=== PATIENT | female | born 1940 | race Caucasian/White ===

== ENCOUNTER 2017-08-15 10:54 | Emergency (ER) | payer OTHER ==
[~2017-08-15] VITALS: Ht 165.1 cm; Wt 63.5 kg
[~2017-08-15 10:54] MED LIST: BETOPTIC S10 ML OPH; CLARITIN10 M1 PO; DEPAKOTE500 M1 PO; DIAMOX SEQUELS500 MG PO; DOXYCYCLINE; LATANOPROST2.5 ML OPH; LOTEMAX5 ML OPH; MEDROL4 M2 PO; PRAVASTATIN SOD40 M2 PO; SIMBRINZA 1%-0.28 ML OPH; VENTOLIN HFA18 GM INH
--- NOTE | 2017-08-15 11:05 | ED DYSPNEA/ASTHMA COMPLAINT ---
History of Present Illness General Chief Complaint: Dyspnea (COPD, CHF, Other) Stated Complaint: SOB Source: patient Exam Limitations: no limitations Vital Signs & Intake/Output Vital Signs & Intake/Output Vital Signs Date Time Temp Pulse Resp B/P B/P Pulse O2 O2 Flow FiO2 Mean Ox Delivery Rate 08/15 1421 98.1 71 18 113/58 94 Room Air 08/15 1333 93 08/15 1237 97.5 74 18 124/56 92 Room Air 08/15 1156 92 08/15 1059 97.8 79 22 135/76 94 Room Air Allergies Coded Allergies: No Known Allergies (12/07/16) Reconcile Medications Albuterol Sulfate 2.5 MG/3 ML (0.083 %) VIAL.NEB 1 Vial INH/GAYLE Q4P PRN SHORTNESS OF BREATH (Reported) Betaxolol HCl (Betoptic S) 0.25 % DROPS.SUSP 1 DROP OPH BID GLAUCOMA ( Reported) BOTH EYES Brinzolamide/Brimonidine Tart (Simbrinza 1%-0.2% Eye Drops) 1 %-0.2 % DROPS.SUSP 1 DROP OPH TID GLAUCOMA (Reported) BOTH EYES Divalproex Sodium (Depakote) 500 MG TABLET.DR 2 TAB PO QHS MOOD DISORDER ( Reported) Lisinopril 20 MG TABLET 1 TAB PO DAILY HEART (Reported) Loteprednol Etabonate (Lotemax) 0.5 % DROPS.SUSP 1 GTT OPH DAILY GLAUCOMA ( Reported) BOTH EYES Pravastatin Sodium 40 MG TABLET 1 TAB PO DAILY CHOLESTEROL (Reported) Prednisone 10 MG TABLET 1 TAB PO DAILY asthma take 4 tabs days 1 and 2 3 tabs day 3 2 tabs day 4 1 tab day 5 Triage Note: PT C/O SOB SINCE SUNDAY. STATES WORSE WITH EXERTION. PT DENIES CP. STATES HX OF ASTHMA BUT NO RELIEF WITH INHALER. O2 SAT 94% IN TRIAGE Triage Nurses Notes Reviewed? yes Onset: Gradual Duration: day(s): Timing: recent history Severity: moderate Activities at Onset: activity HPI: 77yo female with hx of asthma, HTN presents to ED complaining of worsening dyspnea at x 4 days. Patient states that dyspnea has been increasing, worse with exertion. Patient has been using her asthma medications as well as DuoNeb without relief of her symptoms. Patient reports mild cough productive of small amount of mucus, no hemoptysis. Patient also reports wheezing. Patient denies chest pain, abdominal pain, fevers, chills, vomiting, leg swelling. (Deanna Pritchett) Past History Travel History Traveled to [place] past 21 day No Medical History Any Pertinent Medical History? see below for history Neurological: NONE EENT: NONE Cardiovascular: hypertension, hyperlipidemia Respiratory: asthma Gastrointestinal: NONE Hepatic: NONE Renal: NONE Musculoskeletal: NONE Psychiatric: NONE Endocrine: NONE Blood Disorders: NONE Cancer(s): NONE TIMBER HAND/Reproductive: NONE Tetanus Vaccine: 06/25/11 Surgical History Surgical History: non-contributory Psychosocial History Who do you live with Spouse What is your primary language Italian Tobacco Use: Quit >30 days ago ETOH Use: occasional use Illicit Drug Use: denies illicit drug use Family History Hx Contributory? No (Deanna Pritchett) Review of Systems Review of Systems Constitutional: Reports: no symptoms. EENTM: Reports: no symptoms. Respiratory: Reports: see HPI. Cardiovascular: Reports: no symptoms. GI: Reports: no symptoms. Genitourinary: Reports: no symptoms. Musculoskeletal: Reports: no symptoms. Skin: Reports: no symptoms. Neurological/Psychological: Reports: no symptoms. Hematologic/Endocrine: Reports: no symptoms. Immunologic/Allergic: Reports: no symptoms. All Other Systems: Reviewed and Negative (Deanna Pritchett) Physical Exam Physical Exam General Appearance: well developed/nourished, no apparent distress, alert, awake Head: atraumatic, normal appearance Eyes: Bilateral: normal appearance. Ears, Nose, Throat: hearing grossly normal Neck: normal inspection, supple, full range of motion Respiratory: no respiratory distress, diffuse inspiratory and expiratory wheezes bilaterally Cardiovascular: regular rate/rhythm Extremities: normal inspection, normal range of motion, no edema Neurologic/Psych: awake, alert, oriented x 3 Skin: intact, normal color, warm/dry Core Measures ACS in differential dx? Yes CVA/TIA Diagnosis No Sepsis Present: No Sepsis Focused Exam Completed? No (Deanna Pritchett) Progress Differential Diagnosis: asthma, AMI, bronchitis, CHF, COPD, pulmonary embolism, pneumonia, unstable angina Plan of Care: Orders Procedure Date/time Status TROPONIN LEVEL 08/15 1101 Complete COMPREHENSIVE METABOLIC PANEL 08/15 1101 Complete CBC WITHOUT DIFFERENTIAL 08/15 1101 Complete EKG 08/15 1055 Active Laboratory Tests 08/15/17 1120: Anion Gap 11, Estimated GFR > 60, BUN/Creatinine Ratio 21.4, Glucose 102 H, Calcium 9.7, Total Bilirubin 0.5, AST 26, ALT 26, Alkaline Phosphatase 57, Troponin I < 0.01, Total Protein 7.0, Albumin 4.3, Globulin 2.7, Albumin/ Globulin Ratio 1.6, CBC w Diff MAN DIFF ORDERED, RBC 4.15 L, MCV 99.2 H, MCH 33.2 H, MCHC 33.5, RDW 13.8, MPV 8.0, Gran % 35.0 L, Lymphocytes % 44.5, Monocytes % 8.2, Eosinophils % 11.9 H, Basophils % 0.4, Absolute Granulocytes 3.1, Segmented Neutrophils 30 L, Absolute Lymphocytes 4.0 H, Lymphocytes 48, Monocytes 10 H, Absolute Monocytes 0.7 H, Eosinophils 12 H, Absolute Eosinophils 1.1, Absolute Basophils 0, Platelet Estimate ADEQUATE, Anisocytosis 1+ Chest x-ray within normal limits. Patient reports some improvement following DuoNeb. Troponin enzyme is negative, EKG in sinus rhythm. No acute changes in EKG compared to previous study. Patient ambulatory here in the emergency department with O2 saturation between 89-92% on room air. Patient reports minimal dyspnea at this time, she feels comfortable walking here. Patient seen and evaluated by Dr. Weaver. We'll initiate IV Solu-Medrol and repeat DuoNeb. Following further treatment patient feels ready to go home. At rest O2 saturation around 94%, patient states her baseline is about 95%. The patient appears comfortable, she is knowledgeable about her condition. She reports that oral prednisone has worked for her during previous asthma exacerbations. Patient feels comfortable trying outpatient therapy, she was given strick return precautions. The patient is in no acute distress, nontoxic appearing. Patient agrees the plan of care. She will follow up with Dr. Kahn. Dr. Weaver agrees with plan of care. Diagnostic Imaging: Viewed by Me: Radiology Read. Discussed w/RAD: Radiology Read. CXR Impression: PATIENT: FERNANDO JOHN PRESENT AGE: 77 PATIENT ACCOUNT NO: [id number] : 42 LOCATION: [facility] ORDERING PHYSICIAN: Deanna JON SERVICE DATE: 08/15/17 EXAM TYPE: RAD - XRY-CHEST XRAY, TWO VIEWS EXAMINATION: XR CHEST 2 VIEWS CLINICAL INFORMATION: Dyspnea; question pneumonia or pleural effusion. COMPARISON: Prior chest radiograph, most recently 08/06/2015. TECHNIQUE: Frontal and lateral views of the chest were obtained. FINDINGS: The heart, great vessels, pulmonary vasculature and mediastinum are normal. There is atherosclerotic change of the aortic knob. The lungs show no focal infiltrate, effusion or pneumothorax. There is no acute osseous abnormality. There are degenerative changes of the thoracic spine. IMPRESSION: No active cardiopulmonary disease. DICTATED BY: Jimmy Tate MD DATE/TIME DICTATED:08/15/171206 TELEGRAPHIC SERVICE DISPATCHER:SANAM DATE/TIME TRANSCRIBED:08/15/171206 CONFIDENTIAL, DO NOT COPY WITHOUT APPROPRIATE AUTHORIZATION. <Electronically signed in Other Vendor System> SIGNED BY: Jimmy Tate MD 08/15/17 1213 Initial ED EKG: sinus rhythm @69bpm, LBBB, nonspecific ST changes Prior EKG: unchanged (06/08/08) (Cyndy JON,Deanna Rubio) Departure Departure Disposition: HOME OR SELF CARE Condition: Stable Clinical Impression Primary Impression: Asthma exacerbation Secondary Impressions: Dyspnea Qualifiers: Dyspnea type: dyspnea on exertion Qualified Code: R06.09 - Other forms of dyspnea Wheezing Referrals: Leigh Radford MD (PCP/Family) Additional Instructions: Begin prednisone as prescribed. Follow up with your specialist, Dr. Kahn, call to make an appointment for next week. With any worsening symptoms other concerns please return to emergency department. Please note that there might be incidental findings in your evaluation that are unrelated to the current emergency department visit. Please notify your primary care doctor about this emergency department visit in order to obtain and review all of the testing performed so that these incidental findings can be monitored as needed. If you had an x-ray performed, please understand that some fractures may not be seen on the initial set of x-rays. If your symptoms persist you might need a repeat set of x-rays to check for such a fracture. If you had a laceration evaluated, please understand that foreign bodies such as glass or wood may not be visible to the naked eye or on plain x-rays. If the wound becomes red, swollen, increasingly more painful or if there is any drainage from the wound, please have it reevaluated by a physician for the possibility of a retained foreign body. If you're unable to follow up as outlined in the discharge instructions please return to the emergency department. Thank you for choosing the [facility] Emergency Department for your care. It was a pleasure to serve you today. Departure Forms: Customer Survey General Discharge Information Prescriptions: Current Visit Scripts Prednisone 1 TAB PO DAILY #14 TAB take 4 tabs days 1 and 2 3 tabs day 3 2 tabs day 4 1 tab day 5 (Deanna Pritchett) PA/MANAGER INTERVENTIONAL Co-Sign Statement Statement: ED Attending supervision documentation- [X] I saw and evaluated the patient. I have also reviewed all the pertinent lab results and diagnostic results. I agree with the findings and the plan of care as documented in the PA's/MANAGER INTERVENTIONAL's documentation. [] I have reviewed the ED Record and agree with the PA's/MANAGER INTERVENTIONAL's documentation. [] Additions or exceptions (if any) to the PAs/MANAGER INTERVENTIONAL's note and plan are summarized below: [] (Diego Weaver DO) Critical Care Note Critical Care Note Critical Care Time: non-applicable (Deanna Pritchett)
[2017-08-15] MEDS ORDERED: ALBUTEROL2.5 MG/3 M INH/SOL (11:25)
[2017-08-15 11:26] LABS: ABSOLUTE BASOPHIL COUNT 0 /CUMM (0.0-0.2); ABSOLUTE EOSINOPHIL COUNT 1.1 /CUMM (0.0-0.7); ABSOLUTE GRANULOCYTE CT 3.1 /CUMM (1.4-6.5); ABSOLUTE MONOCYTE COUNT 0.7 /CUMM (0.10-0.60); BASOPHIL % 0.4 % (0.0-2.0); EOSINOPHIL % 11.9 % (0-5); HEMATOCRIT 41.2 % (37-47); MEAN CORPUSCULAR HGB 33.2 PG (27.0-31.0); MEAN CORPUSCULAR HGB CONC 33.5 G/DL (33.0-37.0); MEAN CORPUSCULAR VOLUME 99.2 FL (81.0-99.0); PLATELET COUNT 247 /CUMM (130-400); RBC DISTRIBUTION WIDTH 13.8 % (11.5-14.5); RED BLOOD CELL CT 4.15 /CUMM (4.20-5.40)
[2017-08-15] MEDS ORDERED: LISINOPRIL20 M1 PO (11:26)
--- NOTE | 2017-08-15 12:13 | RADIOLOGY REPORT ---
EXAMINATION: XR CHEST 2 VIEWS CLINICAL INFORMATION: Dyspnea; question pneumonia or pleural effusion. COMPARISON: Prior chest radiograph, most recently 08/06/2015. TECHNIQUE: Frontal and lateral views of the chest were obtained. FINDINGS: The heart, great vessels, pulmonary vasculature and mediastinum are normal. There is atherosclerotic change of the aortic knob. The lungs show no focal infiltrate, effusion or pneumothorax. There is no acute osseous abnormality. There are degenerative changes of the thoracic spine. IMPRESSION: No active cardiopulmonary disease.
[2017-08-15 14:21] VITALS: BP 113/58
[2017-08-15] MEDS ORDERED: PREDNISONE10 M2 PO (14:51)
== END 2017-08-15 15:01 ==
LOC: ERH 10:54
PROVIDERS: Physician Assistant
DX: J45.901 Unspecified asthma with (acute) exacerbation (principal)
CPT/HCPCS: 1263; 71046; 93005; 93010; 96374; J2930